=== PATIENT | female | born 1995 | race Caucasian/White ===

== ENCOUNTER 2018-07-09 03:15 | Emergency (ER) | payer MEDICAID ==
[~2018-07-09] VITALS: Ht 167.6 cm; Wt 70.4 kg
[2018-07-09] MEDS ORDERED: IBUPROFEN 800 MG TABLET PO ONE (04:00)
[2018-07-09] MEDS ORDERED: PHENAZOPYRIDINE 200 MG TABLET PO ONE (04:00)
[2018-07-09 04:01] LABS: CULTURE INDICATED? YES; MICROSCOPIC INDICATED
[2018-07-09 04:02] LABS: HCG UR SG 1.025 (1.003-1.030)
[2018-07-09] MEDS ORDERED: IBUPROFEN 800 MG TABLET ONE (04:03)
[2018-07-09] MEDS ORDERED: PHENAZOPYRIDINE 200 MG TABLET ONE (04:04)
[2018-07-09 04:16] LABS: BASOPHILS # (AUTO) 0.09 x10^3/uL (0-0.1); BASOPHILS % (AUTO) 1 % (0-1); EOSINOPHILS # (AUTO) 0.05 x10^3/uL (0-0.4); EOSINOPHILS % (AUTO) 1 % (1-7); LYMPHOCYTES # (AUTO) 1.26 x10^3/uL (1-3.4); LYMPHOCYTES % (AUTO) 11 % (22-44); MD NO; MEAN CORPUSCULAR HGB CONC 33.8 g/dL (32.4-35.8); MEAN CORPUSCULAR VOLUME 91.8 fL (80-100); MEAN PLATELET VOLUME 8.5 fL (7.4-10.4); MONOCYTES # (AUTO) 0.99 x10^3/uL (0.2-0.8); MONOCYTES % (AUTO) 9 % (2-9); NEUTROPHILS # (AUTO) 9.14 x10^3/uL (1.8-6.8); NEUTROPHILS % (AUTO) 79 % (42-75); PLATELET COUNT 285 x10^3/uL (130-400); RED BLOOD COUNT 4.39 x10^6/uL (3.82-5.3); RED CELL DISTRIBUTION WIDTH 13.9 % (9.6-15.2)
[2018-07-09 04:24] LABS: ALANINE AMINOTRANSFERASE 44 U/L (12-78); ANION GAP 5 mmol/L (5-15); CALCIUM 8.7 mg/dL (8.5-10.1); CHLORIDE 107 mmol/L (98-107); CREATININE 0.69 mg/dL (0.55-1.02)
[2018-07-09 04:27] LABS: ALKALINE PHOSPHATASE 71 U/L (45-117); BILIRUBIN,TOTAL 0.3 mg/dL (0.2-1.0); TOTAL PROTEIN 7.7 g/dL (6.4-8.2)
--- NOTE | 2018-07-09 04:36 | NUR ---
PELVIC DONE PT RESTING IN ROOM. VS STABLE. CALL LIGHT IN PLACE. WILL CONTINUE TO MONITOR.
[2018-07-09 04:56] LABS: CLUE CELLS PRESENT (NONE SEEN); WET PREP WBCS FEW (FEW)
[2018-07-09] MEDS ORDERED: FLUCONAZOLE 100 MG TABLET PO ONE (05:00)
[2018-07-09] MEDS ORDERED: FLUCONAZOLE 100 MG TABLET ONE (05:06)
[2018-07-09 05:14] VITALS: BP 128/74
== END 2018-07-09 05:16 | disposition home or self-care (01) ==
LOC: ED 05:02
DX: B37.3 Candidiasis of vulva and vagina (principal); N83.209 Unspecified ovarian cyst, unspecified side
CPT/HCPCS: 36415; 80053; 81001; 81025; 85025; 87077; 87086; 87186; 87210; 87491; 87591; 87808; 99284